=== PATIENT | female | born 1995 | race Caucasian/White ===

== ENCOUNTER 2019-11-10 16:45 | Emergency (ER) | payer BC, SELFPAY ==
[2019-11-10 17:05] VITALS: BP 134/74; PULSE 86; RESP 16; O2SAT 99
--- NOTE | 2019-11-10 17:11 | ED.GENADULT ---
HPI - General Adult General Chief complaint: Ear Stated complaint: Dizziness Time Seen by Provider: 11/10/19 17:11 Source: patient Mode of arrival: ambulatory Limitations: no limitations History of Present Illness HPI narrative: 24-year-old female patient [facility] complaints of dizziness for the past week. Patient states she is also had some sneezing that started about a week prior to the dizziness. Patient denies any ear pain. Patient states she has had issues with her ears before in the past. Patient denies any runny nose, stuffy nose or sore throat. Patient states she does feel like her throat is dry at times. Denies any coughing, chest pain, shortness of breath, abdominal pain, nausea, vomiting or diarrhea. Patient denies taking anything for her symptoms. Related Data Allergies Allergy/AdvReac Type Severity Reaction Status Date / Time NKDA Allergy Unknown Other Uncoded 11/10/19 17:09 NKFA Allergy Unknown Other Uncoded 11/10/19 17:09 Review of Systems Review of Systems: Narrative: CONSTITUTIONAL: Denies fever, chills, or sweats. EYES: Denies visual changes, redness, or discharge. ENT: Denies rhinorrhea, congestion, sore throat, or otalgia. Positive sneezing CARDIOVASCULAR: Denies chest pain, palpitations, or edema. RESPIRATORY: Denies cough or dyspnea. GASTROINTESTINAL: Denies abdominal pain, nausea, vomiting, or diarrhea. GENITOURINARY: Denies dysuria or hematuria. SKIN: Denies rash or itching. MUSCULOSKELETAL: Denies back pain, joint pain, or myalgia. NEUROLOGIC: Denies headache, numbness, or weakness. Positive dizziness x1 week PSYCHIATRIC: Denies anxiety or depression. PMFSH Social History Social History Gender identity (if verbalized by the patient): Female Comments At the time of my signature I agree with nursing past medical history, surgical, social, and family history. There is no relevant family history pertinent to the presenting complaint. Exam Narrative: Exam Narrative: GENERAL: Well-appearing, well-nourished, and in no acute distress. HEAD: Normocephalic, atraumatic. No tenderness noted to frontal and maxillary sinuses on palpation EYES: PERRLA and EOMI. ENT: Nares with erythema and edema noted bilaterally, no rhinorrhea or epistaxis. Mucous membranes moist. Posterior pharynx with 1+ tonsil enlargement, no exudates or lesions present. Bilateral TMs do have some fluid noted behind the TMs. The left canal does have some earwax but it is nonobstructing. NECK: Supple. No lymphadenopathy CHEST: Clear to auscultation. No respiratory distress. Patient able talk in clear complete sentences. No tripoding noted. HEART: Regular rate and rhythm. No murmur heard. Normal peripheral pulses. ABDOMEN: Soft, nontender, nondistended, normal active bowel sounds. EXTREMITIES: Normal range of motion. No edema. SKIN: Warm, dry, no rash. NEURO: No focal deficits. Alert and oriented x3. Course Vital Signs Vital signs: Vital Signs Pulse Rate 86 11/10/19 17:05 Respiratory Rate 16 11/10/19 17:05 Blood Pressure 134/74 11/10/19 17:05 Pulse Oximetry 99 11/10/19 17:05 Pulse Rate 86 11/10/19 17:05 Respiratory Rate 16 11/10/19 17:05 Blood Pressure 134/74 11/10/19 17:05 Pulse Oximetry 99 11/10/19 17:05 Vital signs reviewed. The patient has been informed that they may have pre-hypertension or Hypertension based on a BP reading in the department. I recommend that the patient call the primary care provider listed on their discharge instructions or a physician of their choice this week to arrange follow up for further evaluation of possible pre-hypertension or Hypertension Medical Decision Making Differential Diagnosis Differential Diagnosis: Differential diagnosis: Otitis media, otitis externa, perforated TM, infection of the outer ear, foreign body or cerumen impaction, ruptured TM, acute mastoiditis, ligament otitis ex
== END 2019-11-10 17:20 | disposition home or self-care (01) ==
PROVIDERS: Emergency Provider Nurse Practitioner Family
DX: H73.893 Other specified disorders of tympanic membrane, bilateral (principal); J30.2 Other seasonal allergic rhinitis
CPT/HCPCS: 99213; G0463